=== PATIENT | male | born 1965 | race American Indian/Alaskan Native ===

== ENCOUNTER 2019-07-30 11:41 | Emergency (ER) | payer MEDICAID ==
--- NOTE | 2019-07-30 12:28 | Emergency Department Report ---
ED Altered Mental Status HPI - General Chief Complaint: Altered Mental Status Stated Complaint: LOW BLOOD SUGAR Time Seen by Provider: 07/30/19 12:17 Source: EMS Mode of arrival: Ambulatory Limitations: Altered Mental Status - History of Present Illness Initial Comments: Patient is a 54-year-old [place]ian male who comes to the ER after being found by the police in his car at [facility]. Patient was reported as a missing persons 48 hours ago by his family. His Department present at bedside on arrival to the ER. Per RN EMS reported low blood sugar on their arrival to pt on scene. On exam patient is able to tell me that he lives at [address] [place] [address]. He states that he lives at home with family. He is . He has a son. His name is Noe and he lives in [place]. Patient reports a history of hypertension diabetes. He initially stated he did not have a stroke in the past and states many years ago he did. Later in his ER stay family share that he had a diabetic coma in the past and that when he came out of the coma he was not as "bright" as he used to be Patient states that he is on her medications cannot recall arm from a couple days. Denies drugs or alcohol. Patient states he does have a PCP not recall his name. She denies any pain. He denies any trauma. He denies any abuse or injury barring his 2 days missing. Patient states that he WAS FOLLOWING a friend to [employer] a vehicle. On their return from THE PATIENT WAS PULLED OVER FOR A TRAFFIC VIOLATION BY THE POLICE. By the time the PERSON THAT HE WAS FOLLOWING realized he was no longer behind him and he went back to locate him, he could not. So the friend CONTINUED HOME TOWARDS [facility]. The patient had no phone on him. The patient states that he eventually made it to [facility] and he recognized the [facility] so he pulled in there. The PD found him in his care. He was awake at the time, PD called EMS who brings him to ER. No sign of injury. Complaint: confusion -: Gradual, days(s) Severity: mild Associated Symptoms: denies other symptoms - Related Data Allergies Allergy/AdvReac Type Severity Reaction Status Date / Time No Known Allergies Allergy Verified 07/30/19 12:30 ED Review of Systems ROS: Stated complaint: LOW BLOOD SUGAR Other details as noted in HPI Comment: All other systems reviewed and negative ED Past Medical Hx - Past Medical History Hx Hypertension: Yes Hx Diabetes: Yes - Surgical History Past Surgical History?: No - Family History Family history: no significant - Social History Smoking Status: Never Smoker Substance Use Type: None ED Physical Exam - General Limitations: Altered Mental Status General appearance: alert, in no apparent distress - Head Head exam: Present: atraumatic, normocephalic - Eye Eye exam: Present: normal appearance - ENT ENT exam: Present: mucous membranes moist - Neck Neck exam: Present: normal inspection - Respiratory Respiratory exam: Present: normal lung sounds bilaterally. Absent: respiratory distress - Cardiovascular Cardiovascular Exam: Present: regular rate, normal rhythm. Absent: systolic murmur, diastolic murmur, rubs, gallop - GI/Abdominal GI/Abdominal exam: Present: soft, normal bowel sounds - Rectal Rectal exam: Present: deferred - Extremities Exam Extremities exam: Present: normal inspection - Back Exam Back exam: Present: normal inspection - Neurological Exam Neurological exam: Present: alert, oriented X3 - Psychiatric Psychiatric exam: Present: normal affect, normal mood - Skin Skin exam: Present: warm, dry, intact, normal color. Absent: rash - Assessment Assessment Interval: Baseline - Level of Consciousness 1a. Level of Consciousness: alert/keenly responsive - LOC Questions 1b. LOC Questions: answers both correctly - LOC Command 1c. LOC Commands: performs tasks correctly - Best Gaze 2. Best Gaze: normal - Visual 3. Visual: no visual loss - Facial Palsy 4. Facial Palsy: normal symmetrical movement - Motor Arm 5a. Motor Arm Left: no drift 5b. Motor Arm Right: no drift - Motor Leg 6a. Motor Leg Left: no drift 6b. Motor Leg Right: no drift - Limb Ataxia 7. Limb Ataxia: absent - Sensory 8. Sensory: normal - Best Language 9. Best Language: no aphasia - Dysarthria 10. Dysarthria: normal - Extinction and Inattention 11. Extinction/Inattention: no abnormality - Scoring Total Score: 0 Stroke Severity: No Stroke Symptoms ED Course Vital Signs 07/30/19 07/30/19 07/30/19 11:54 12:34 13:54 Pulse Rate 88 Respiratory 16 14 Rate Blood Pressure 211/117 194/124 [Right] O2 Sat by Pulse 98 Oximetry - Lab Data Result diagrams: 07/30/19 12:31 07/30/19 12:31 Lab Results 07/30/19 07/30/19 07/30/19 Range/Units 12:18 12:22 12:22 WBC (4.5-11.0) K/mm3 RBC (3.65-5.03) M/mm3 Hgb (11.8-15.2) gm/dl Hct (35.5-45.6) % MCV (84-94) fl MCH (28-32) pg MCHC (32-34) % RDW (13.2-15.2) % Plt Count (140-440) K/mm3 Lymph % (Auto) (13.4-35.0) % [place] % (Auto) (0.0-7.3) % Eos % (Auto) (0.0-4.3) % Baso % (Auto) (0.0-1.8) % Lymph # (1.2-5.4) K/mm3 [place] # (0.0-0.8) K/mm3 Eos # (0.0-0.4) K/mm3 Baso # (0.0-0.1) K/mm3 Seg Neutrophils % (40.0-70.0) % Seg Neutrophils # (1.8-7.7) K/mm3 PT (12.2-14.9) Sec. INR (0.87-1.13) APTT (24.2-36.6) Sec. Sodium (137-145) mmol/L Potassium (3.6-5.0) mmol/L Chloride (98-107) mmol/L Carbon Dioxide (22-30) mmol/L Anion Gap mmol/L BUN (9-20) mg/dL Creatinine (0.8-1.5) mg/dL Estimated GFR ml/min BUN/Creatinine Ratio % Glucose (75-100) mg/dL POC Glucose 84 (70-105) Lactic Acid (0.7-2.0) mmol/L Calcium (8.4-10.2) mg/dL Total Bilirubin (0.1-1.2) mg/dL AST (5-40) units/L ALT (7-56) units/L Alkaline Phosphatase (35-129) units/L Total Creatine Kinase (55-170) units/L Troponin T (0.00-0.029) ng/mL Total Protein (6.3-8.2) g/dL Albumin (3.9-5) g/dL Albumin/Globulin Ratio % TSH (0.270-4.200) mlU/mL Urine Color Yellow (Yellow) Urine Turbidity Clear (Clear) Urine pH 7.0 (5.0-7.0) Ur Specific [place] 1.016 (1.003-1.030) Urine Protein 30 mg/dl (Negative) mg/dL Urine Glucose (UA) Neg (Negative) mg/dL Urine Ketones Neg (Negative) mg/dL Urine Blood Neg (Negative) Urine Nitrite Neg (Negative) Urine Bilirubin Neg (Negative) Urine Urobilinogen 4.0 (<2.0) mg/dL Ur Leukocyte Esterase Neg (Negative) Urine WBC (Auto) 2.0 (0.0-6.0) /HPF Urine RBC (Auto) 4.0 (0.0-6.0) /HPF U Epithel Cells (Auto) 2.0 (0-13.0) /HPF Urine Bacteria (Auto) 2+ (Negative) /HPF Urine Mucus Few /HPF Urine Opiates Screen Presumptive negative Urine Methadone Screen Presumptive negative Acetaminophen (10.0-30.0) ug/mL Ur Barbiturates Screen Presumptive negative Ur Phencyclidine Scrn Presumptive negative Ur Amphetamines Screen Presumptive negative U Benzodiazepines Scrn Presumptive negative Urine Cocaine Screen Presumptive negative U Marijuana (THC) Screen Presumptive negative Drugs of Abuse Note Disclamer Plasma/Serum Alcohol (0-0.07) % 07/30/19 07/30/19 07/30/19 Range/Units 12:31 12:31 12:31 WBC 4.6 (4.5-11.0) K/mm3 RBC 4.80 (3.65-5.03) M/mm3 Hgb 14.6 (11.8-15.2) gm/dl Hct 44.3 (35.5-45.6) % MCV 92 (84-94) fl MCH 30 (28-32) pg MCHC 33 (32-34) % RDW 14.3 (13.2-15.2) % Plt Count 194 (140-440) K/mm3 Lymph % (Auto) 50.0 H (13.4-35.0) % [place] % (Auto) 6.4 (0.0-7.3) % Eos % (Auto) 4.5 H (0.0-4.3) % Baso % (Auto) 0.5 (0.0-1.8) % Lymph # 2.3 (1.2-5.4) K/mm3 [place] # 0.3 (0.0-0.8) K/mm3 Eos # 0.2 (0.0-0.4) K/mm3 Baso # 0.0 (0.0-0.1) K/mm3 Seg Neutrophils % 38.6 L (40.0-70.0) % Seg Neutrophils # 1.8 (1.8-7.7) K/mm3 PT 12.7 (12.2-14.9) Sec. INR 0.94 (0.87-1.13) APTT 32.6 (24.2-36.6) Sec. Sodium 144 (137-145) mmol/L Potassium 3.1 L (3.6-5.0) mmol/L Chloride 101.5 (98-107) mmol/L Carbon Dioxide 27 (22-30) mmol/L Anion Gap 19 mmol/L BUN 16 (9-20) mg/dL Creatinine 1.3 (0.8-1.5) mg/dL Estimated GFR > 60 ml/min BUN/Creatinine Ratio 12 % Glucose 121 H (75-100) mg/dL POC Glucose (70-105) Lactic Acid (0.7-2.0) mmol/L Calcium 9.3 (8.4-10.2) mg/dL Total Bilirubin 0.60 (0.1-1.2) mg/dL AST 17 (5-40) units/L ALT 19 (7-56) units/L Alkaline Phosphatase 133 H (35-129) units/L Total Creatine Kinase 157 (55-170) units/L Troponin T < 0.010 (0.00-0.029) ng/mL Total Protein 7.7 (6.3-8.2) g/dL Albumin 4.6 (3.9-5) g/dL Albumin/Globulin Ratio 1.5 % TSH (0.270-4.200) mlU/mL Urine Color (Yellow) Urine Turbidity (Clear) Urine pH (5.0-7.0) Ur Specific [place] (1.003-1.030) Urine Protein (Negative) mg/dL Urine Glucose (UA) (Negative) mg/dL Urine Ketones (Negative) mg/dL Urine Blood (Negative) Urine Nitrite (Negative) Urine Bilirubin (Negative) Urine Urobilinogen (<2.0) mg/dL Ur Leukocyte Esterase (Negative) Urine WBC (Auto) (0.0-6.0) /HPF Urine RBC (Auto) (0.0-6.0) /HPF U Epithel Cells (Auto) (0-13.0) /HPF Urine Bacteria (Auto) (Negative) /HPF Urine Mucus /HPF Urine Opiates Screen Urine Methadone Screen Acetaminophen (10.0-30.0) ug/mL Ur Barbiturates Screen Ur Phencyclidine Scrn Ur Amphetamines Screen U Benzodiazepines Scrn Urine Cocaine Screen U Marijuana (THC) Screen Drugs of Abuse Note Plasma/Serum Alcohol (0-0.07) % 07/30/19 07/30/19 07/30/19 Range/Units 12:31 12:31 12:31 WBC (4.5-11.0) K/mm3 RBC (3.65-5.03) M/mm3 Hgb (11.8-15.2) gm/dl Hct (35.5-45.6) % MCV (84-94) fl MCH (28-32) pg MCHC (32-34) % RDW (13.2-15.2) % Plt Count (140-440) K/mm3 Lymph % (Auto) (13.4-35.0) % [place] % (Auto) (0.0-7.3) % Eos % (Auto) (0.0-4.3) % Baso % (Auto) (0.0-1.8) % Lymph # (1.2-5.4) K/mm3 [place] # (0.0-0.8) K/mm3 Eos # (0.0-0.4) K/mm3 Baso # (0.0-0.1) K/mm3 Seg Neutrophils % (40.0-70.0) % Seg Neutrophils # (1.8-7.7) K/mm3 PT (12.2-14.9) Sec. INR (0.87-1.13) APTT (24.2-36.6) Sec. Sodium (137-145) mmol/L Potassium (3.6-5.0) mmol/L Chloride (98-107) mmol/L Carbon Dioxide (22-30) mmol/L Anion Gap mmol/L BUN (9-20) mg/dL Creatinine (0.8-1.5) mg/dL Estimated GFR ml/min BUN/Creatinine Ratio % Glucose (75-100) mg/dL POC Glucose (70-105) Lactic Acid 0.80 (0.7-2.0) mmol/L Calcium (8.4-10.2) mg/dL Total Bilirubin (0.1-1.2) mg/dL AST (5-40) units/L ALT (7-56) units/L Alkaline Phosphatase (35-129) units/L Total Creatine Kinase (55-170) units/L Troponin T (0.00-0.029) ng/mL Total Protein (6.3-8.2) g/dL Albumin (3.9-5) g/dL Albumin/Globulin Ratio % TSH (0.270-4.200) mlU/mL Urine Color (Yellow) Urine Turbidity (Clear) Urine pH (5.0-7.0) Ur Specific [place] (1.003-1.030) Urine Protein (Negative) mg/dL Urine Glucose (UA) (Negative) mg/dL Urine Ketones (Negative) mg/dL Urine Blood (Negative) Urine Nitrite (Negative) Urine Bilirubin (Negative) Urine Urobilinogen (<2.0) mg/dL Ur Leukocyte Esterase (Negative) Urine WBC (Auto) (0.0-6.0) /HPF Urine RBC (Auto) (0.0-6.0) /HPF U Epithel Cells (Auto) (0-13.0) /HPF Urine Bacteria (Auto) (Negative) /HPF Urine Mucus /HPF Urine Opiates Screen Urine Methadone Screen Acetaminophen < 5.0 L (10.0-30.0) ug/mL Ur Barbiturates Screen Ur Phencyclidine Scrn Ur Amphetamines Screen U Benzodiazepines Scrn Urine Cocaine Screen U Marijuana (THC) Screen Drugs of Abuse Note Plasma/Serum Alcohol < 0.01 (0-0.07) % 07/30/19 07/30/19 Range/Units 12:38 14:18 WBC (4.5-11.0) K/mm3 RBC (3.65-5.03) M/mm3 Hgb (11.8-15.2) gm/dl Hct (35.5-45.6) % MCV (84-94) fl MCH (28-32) pg MCHC (32-34) % RDW (13.2-15.2) % Plt Count (140-440) K/mm3 Lymph % (Auto) (13.4-35.0) % [place] % (Auto) (0.0-7.3) % Eos % (Auto) (0.0-4.3) % Baso % (Auto) (0.0-1.8) % Lymph # (1.2-5.4) K/mm3 [place] # (0.0-0.8) K/mm3 Eos # (0.0-0.4) K/mm3 Baso # (0.0-0.1) K/mm3 Seg Neutrophils % (40.0-70.0) % Seg Neutrophils # (1.8-7.7) K/mm3 PT (12.2-14.9) Sec. INR (0.87-1.13) APTT (24.2-36.6) Sec. Sodium (137-145) mmol/L Potassium (3.6-5.0) mmol/L Chloride (98-107) mmol/L Carbon Dioxide (22-30) mmol/L Anion Gap mmol/L BUN (9-20) mg/dL Creatinine (0.8-1.5) mg/dL Estimated GFR ml/min BUN/Creatinine Ratio % Glucose (75-100) mg/dL POC Glucose (70-105) Lactic Acid (0.7-2.0) mmol/L Calcium (8.4-10.2) mg/dL Total Bilirubin (0.1-1.2) mg/dL AST (5-40) units/L ALT (7-56) units/L Alkaline Phosphatase (35-129) units/L Total Creatine Kinase (55-170) units/L Troponin T (0.00-0.029) ng/mL Total Protein (6.3-8.2) g/dL Albumin (3.9-5) g/dL Albumin/Globulin Ratio % TSH 2.400 (0.270-4.200) mlU/mL Urine Color (Yellow) Urine Turbidity (Clear) Urine pH (5.0-7.0) Ur Specific [place] (1.003-1.030) Urine Protein (Negative) mg/dL Urine Glucose (UA) (Negative) mg/dL Urine Ketones (Negative) mg/dL Urine Blood (Negative) Urine Nitrite (Negative) Urine Bilirubin (Negative) Urine Urobilinogen (<2.0) mg/dL Ur Leukocyte Esterase (Negative) Urine WBC (Auto) (0.0-6.0) /HPF Urine RBC (Auto) (0.0-6.0) /HPF U Epithel Cells (Auto) (0-13.0) /HPF Urine Bacteria (Auto) (Negative) /HPF Urine Mucus /HPF Urine Opiates Screen Urine Methadone Screen Acetaminophen (10.0-30.0) ug/mL Ur Barbiturates Screen Ur Phencyclidine Scrn Ur Amphetamines Screen U Benzodiazepines Scrn Urine Cocaine Screen U Marijuana (THC) Screen Drugs of Abuse Note Plasma/Serum Alcohol < 0.01 (0-0.07) % - EKG Data -: EKG Interpreted by Mo EKG shows normal: sinus rhythm Rate: normal Interpretation: no acute changes - Radiology Data Radiology results: report reviewed, image reviewed - Medical Decision Making Lab Results 07/30/19 07/30/19 07/30/19 Range/Units 12:18 12:22 12:22 WBC (4.5-11.0) K/mm3 RBC (3.65-5.03) M/mm3 Hgb (11.8-15.2) gm/dl Hct (35.5-45.6) % MCV (84-94) fl MCH (28-32) pg MCHC (32-34) % RDW (13.2-15.2) % Plt Count (140-440) K/mm3 Lymph % (Auto) (13.4-35.0) % [place] % (Auto) (0.0-7.3) % Eos % (Auto) (0.0-4.3) % Baso % (Auto) (0.0-1.8) % Lymph # (1.2-5.4) K/mm3 [place] # (0.0-0.8) K/mm3 Eos # (0.0-0.4) K/mm3 Baso # (0.0-0.1) K/mm3 Seg Neutrophils % (40.0-70.0) % Seg Neutrophils # (1.8-7.7) K/mm3 PT (12.2-14.9) Sec. INR (0.87-1.13) APTT (24.2-36.6) Sec. Sodium (137-145) mmol/L Potassium (3.6-5.0) mmol/L Chloride (98-107) mmol/L Carbon Dioxide (22-30) mmol/L Anion Gap mmol/L BUN (9-20) mg/dL Creatinine (0.8-1.5) mg/dL Estimated GFR ml/min BUN/Creatinine Ratio % Glucose (75-100) mg/dL POC Glucose 84 (70-105) Lactic Acid (0.7-2.0) mmol/L Calcium (8.4-10.2) mg/dL Total Bilirubin (0.1-1.2) mg/dL AST (5-40) units/L ALT (7-56) units/L Alkaline Phosphatase (35-129) units/L Total Creatine Kinase (55-170) units/L Troponin T (0.00-0.029) ng/mL Total Protein (6.3-8.2) g/dL Albumin (3.9-5) g/dL Albumin/Globulin Ratio % TSH (0.270-4.200) mlU/mL Urine Color Yellow (Yellow) Urine Turbidity Clear (Clear) Urine pH 7.0 (5.0-7.0) Ur Specific [place] 1.016 (1.003-1.030) Urine Protein 30 mg/dl (Negative) mg/dL Urine Glucose (UA) Neg (Negative) mg/dL Urine Ketones Neg (Negative) mg/dL Urine Blood Neg (Negative) Urine Nitrite Neg (Negative) Urine Bilirubin Neg (Negative) Urine Urobilinogen 4.0 (<2.0) mg/dL Ur Leukocyte Esterase Neg (Negative) Urine WBC (Auto) 2.0 (0.0-6.0) /HPF Urine RBC (Auto) 4.0 (0.0-6.0) /HPF U Epithel Cells (Auto) 2.0 (0-13.0) /HPF Urine Bacteria (Auto) 2+ (Negative) /HPF Urine Mucus Few /HPF Urine Opiates Screen Presumptive negative Urine Methadone Screen Presumptive negative Acetaminophen (10.0-30.0) ug/mL Ur Barbiturates Screen Presumptive negative Ur Phencyclidine Scrn Presumptive negative Ur Amphetamines Screen Presumptive negative U Benzodiazepines Scrn Presumptive negative Urine Cocaine Screen Presumptive negative U Marijuana (THC) Screen Presumptive negative Drugs of Abuse Note Disclamer Plasma/Serum Alcohol (0-0.07) % 07/30/19 07/30/19 07/30/19 Range/Units 12:31 12:31 12:31 WBC 4.6 (4.5-11.0) K/mm3 RBC 4.80 (3.65-5.03) M/mm3 Hgb 14.6 (11.8-15.2) gm/dl Hct 44.3 (35.5-45.6) % MCV 92 (84-94) fl MCH 30 (28-32) pg MCHC 33 (32-34) % RDW 14.3 (13.2-15.2) % Plt Count 194 (140-440) K/mm3 Lymph % (Auto) 50.0 H (13.4-35.0) % [place] % (Auto) 6.4 (0.0-7.3) % Eos % (Auto) 4.5 H (0.0-4.3) % Baso % (Auto) 0.5 (0.0-1.8) % Lymph # 2.3 (1.2-5.4) K/mm3 [place] # 0.3 (0.0-0.8) K/mm3 Eos # 0.2 (0.0-0.4) K/mm3 Baso # 0.0 (0.0-0.1) K/mm3 Seg Neutrophils % 38.6 L (40.0-70.0) % Seg Neutrophils # 1.8 (1.8-7.7) K/mm3 PT 12.7 (12.2-14.9) Sec. INR 0.94 (0.87-1.13) APTT 32.6 (24.2-36.6) Sec. Sodium 144 (137-145) mmol/L Potassium 3.1 L (3.6-5.0) mmol/L Chloride 101.5 (98-107) mmol/L Carbon Dioxide 27 (22-30) mmol/L Anion Gap 19 mmol/L BUN 16 (9-20) mg/dL Creatinine 1.3 (0.8-1.5) mg/dL Estimated GFR > 60 ml/min BUN/Creatinine Ratio 12 % Glucose 121 H (75-100) mg/dL POC Glucose (70-105) Lactic Acid (0.7-2.0) mmol/L Calcium 9.3 (8.4-10.2) mg/dL Total Bilirubin 0.60 (0.1-1.2) mg/dL AST 17 (5-40) units/L ALT 19 (7-56) units/L Alkaline Phosphatase 133 H (35-129) units/L Total Creatine Kinase 157 (55-170) units/L Troponin T < 0.010 (0.00-0.029) ng/mL Total Protein 7.7 (6.3-8.2) g/dL Albumin 4.6 (3.9-5) g/dL Albumin/Globulin Ratio 1.5 % TSH (0.270-4.200) mlU/mL Urine Color (Yellow) Urine Turbidity (Clear) Urine pH (5.0-7.0) Ur Specific [place] (1.003-1.030) Urine Protein (Negative) mg/dL Urine Glucose (UA) (Negative) mg/dL Urine Ketones (Negative) mg/dL Urine Blood (Negative) Urine Nitrite (Negative) Urine Bilirubin (Negative) Urine Urobilinogen (<2.0) mg/dL Ur Leukocyte Esterase (Negative) Urine WBC (Auto) (0.0-6.0) /HPF Urine RBC (Auto) (0.0-6.0) /HPF U Epithel Cells (Auto) (0-13.0) /HPF Urine Bacteria (Auto) (Negative) /HPF Urine Mucus /HPF Urine Opiates Screen Urine Methadone Screen Acetaminophen (10.0-30.0) ug/mL Ur Barbiturates Screen Ur Phencyclidine Scrn Ur Amphetamines Screen U Benzodiazepines Scrn Urine Cocaine Screen U Marijuana (THC) Screen Drugs of Abuse Note Plasma/Serum Alcohol (0-0.07) % 07/30/19 07/30/19 07/30/19 Range/Units 12:31 12:31 12:31 WBC (4.5-11.0) K/mm3 RBC (3.65-5.03) M/mm3 Hgb (11.8-15.2) gm/dl Hct (35.5-45.6) % MCV (84-94) fl MCH (28-32) pg MCHC (32-34) % RDW (13.2-15.2) % Plt Count (140-440) K/mm3 Lymph % (Auto) (13.4-35.0) % [place] % (Auto) (0.0-7.3) % Eos % (Auto) (0.0-4.3) % Baso % (Auto) (0.0-1.8) % Lymph # (1.2-5.4) K/mm3 [place] # (0.0-0.8) K/mm3 Eos # (0.0-0.4) K/mm3 Baso # (0.0-0.1) K/mm3 Seg Neutrophils % (40.0-70.0) % Seg Neutrophils # (1.8-7.7) K/mm3 PT (12.2-14.9) Sec. INR (0.87-1.13) APTT (24.2-36.6) Sec. Sodium (137-145) mmol/L Potassium (3.6-5.0) mmol/L Chloride (98-107) mmol/L Carbon Dioxide (22-30) mmol/L Anion Gap mmol/L BUN (9-20) mg/dL Creatinine (0.8-1.5) mg/dL Estimated GFR ml/min BUN/Creatinine Ratio % Glucose (75-100) mg/dL POC Glucose (70-105) Lactic Acid 0.80 (0.7-2.0) mmol/L Calcium (8.4-10.2) mg/dL Total Bilirubin (0.1-1.2) mg/dL AST (5-40) units/L ALT (7-56) units/L Alkaline Phosphatase (35-129) units/L Total Creatine Kinase (55-170) units/L Troponin T (0.00-0.029) ng/mL Total Protein (6.3-8.2) g/dL Albumin (3.9-5) g/dL Albumin/Globulin Ratio % TSH (0.270-4.200) mlU/mL Urine Color (Yellow) Urine Turbidity (Clear) Urine pH (5.0-7.0) Ur Specific [place] (1.003-1.030) Urine Protein (Negative) mg/dL Urine Glucose (UA) (Negative) mg/dL Urine Ketones (Negative) mg/dL Urine Blood (Negative) Urine Nitrite (Negative) Urine Bilirubin (Negative) Urine Urobilinogen (<2.0) mg/dL Ur Leukocyte Esterase (Negative) Urine WBC (Auto) (0.0-6.0) /HPF Urine RBC (Auto) (0.0-6.0) /HPF U Epithel Cells (Auto) (0-13.0) /HPF Urine Bacteria (Auto) (Negative) /HPF Urine Mucus /HPF Urine Opiates Screen Urine Methadone Screen Acetaminophen < 5.0 L (10.0-30.0) ug/mL Ur Barbiturates Screen Ur Phencyclidine Scrn Ur Amphetamines Screen U Benzodiazepines Scrn Urine Cocaine Screen U Marijuana (THC) Screen Drugs of Abuse Note Plasma/Serum Alcohol < 0.01 (0-0.07) % 07/30/19 07/30/19 Range/Units 12:38 14:18 WBC (4.5-11.0) K/mm3 RBC (3.65-5.03) M/mm3 Hgb (11.8-15.2) gm/dl Hct (35.5-45.6) % MCV (84-94) fl MCH (28-32) pg MCHC (32-34) % RDW (13.2-15.2) % Plt Count (140-440) K/mm3 Lymph % (Auto) (13.4-35.0) % [place] % (Auto) (0.0-7.3) % Eos % (Auto) (0.0-4.3) % Baso % (Auto) (0.0-1.8) % Lymph # (1.2-5.4) K/mm3 [place] # (0.0-0.8) K/mm3 Eos # (0.0-0.4) K/mm3 Baso # (0.0-0.1) K/mm3 Seg Neutrophils % (40.0-70.0) % Seg Neutrophils # (1.8-7.7) K/mm3 PT (12.2-14.9) Sec. INR (0.87-1.13) APTT (24.2-36.6) Sec. Sodium (137-145) mmol/L Potassium (3.6-5.0) mmol/L Chloride (98-107) mmol/L Carbon Dioxide (22-30) mmol/L Anion Gap mmol/L BUN (9-20) mg/dL Creatinine (0.8-1.5) mg/dL Estimated GFR ml/min BUN/Creatinine Ratio % Glucose (75-100) mg/dL POC Glucose (70-105) Lactic Acid (0.7-2.0) mmol/L Calcium (8.4-10.2) mg/dL Total Bilirubin (0.1-1.2) mg/dL AST (5-40) units/L ALT (7-56) units/L Alkaline Phosphatase (35-129) units/L Total Creatine Kinase (55-170) units/L Troponin T (0.00-0.029) ng/mL Total Protein (6.3-8.2) g/dL Albumin (3.9-5) g/dL Albumin/Globulin Ratio % TSH 2.400 (0.270-4.200) mlU/mL Urine Color (Yellow) Urine Turbidity (Clear) Urine pH (5.0-7.0) Ur Specific [place] (1.003-1.030) Urine Protein (Negative) mg/dL Urine Glucose (UA) (Negative) mg/dL Urine Ketones (Negative) mg/dL Urine Blood (Negative) Urine Nitrite (Negative) Urine Bilirubin (Negative) Urine Urobilinogen (<2.0) mg/dL Ur Leukocyte Esterase (Negative) Urine WBC (Auto) (0.0-6.0) /HPF Urine RBC (Auto) (0.0-6.0) /HPF U Epithel Cells (Auto) (0-13.0) /HPF Urine Bacteria (Auto) (Negative) /HPF Urine Mucus /HPF Urine Opiates Screen Urine Methadone Screen Acetaminophen (10.0-30.0) ug/mL Ur Barbiturates Screen Ur Phencyclidine Scrn Ur Amphetamines Screen U Benzodiazepines Scrn Urine Cocaine Screen U Marijuana (THC) Screen Drugs of Abuse Note Plasma/Serum Alcohol < 0.01 (0-0.07) % Vital Signs 07/30/19 07/30/19 07/30/19 11:54 12:34 13:54 Pulse Rate 88 Respiratory 16 14 Rate Blood Pressure 211/117 194/124 [Right] O2 Sat by Pulse 98 Oximetry PD at bedside on arrival labs noted- K replaced ua noted CT neg xray neg no neuro def taking po ambulating family phoned and at bedside. Family interviewed. They informed me that pt has had some difficulties since he had diabetic coma. The story told to me by pt was in fact what family had also been told by friend. Pt is unharmed. labs/ct/xray all normal.. He has ambulated without difficulty. BP per provider on dc 150/88. HR 90. RR 20. Eating [employer] sitting at bedside with family. Pt to dc with family they understand he should be observed and follow up with pcp. He is to resume home meds and diabetic diet. They verbalize understanding. - Differential Diagnosis wellness eval; ro injury/abuse; substance abuse; cva/tia; chi - Core Measures AMI Core Measures Followed: No - NEXUS Criteria Focal neurological deficit present: No Midline spinal tenderness present: No Altered level of consciousness: No Intoxication present: No Distracting injury present: No NEXUS results: C-Spine can be cleared clinically by these results. Imaging is not required. Critical care attestation.: If time is entered above; I have spent that time in minutes in the direct care of this critically ill patient, excluding procedure time. ED Disposition Clinical Impression: AMS (altered mental status), History of chronic hypertension, History of diabetes mellitus, Hypokalemia Disposition: DC-01 TO HOME OR SELFCARE Is pt being admited?: No Does the pt Need Aspirin: No Condition: Stable Additional Instructions: follow up with pcp this week for reevaluation referral below diabetic diet stay well hydrated stay with family activity as tolerated motrin or tylenol for pain Referrals: GUILLERMINA ACEVEDO MD [Primary Care Provider] - 3-5 Days VARINDER ESTRADA MD [Staff Physician] - 3-5 Days Time of Disposition: 16:08
[2019-07-30 12:31] LABS: Bacteria,Urine 2+ /HPF (Negative); Bilirubin,Urine NEG (Negative); Blood,Urine NEG (Negative); Color,Urine Yellow (Yellow); Mucus,Urine FEW /HPF
[2019-07-30 12:39] LABS: Amphetamine Screen,Urine PRESUMPTIVE NEGATIVE; Benzodiazepines Screen,Urine PRESUMPTIVE NEGATIVE; Cannabinoid Screen,Urine PRESUMPTIVE NEGATIVE; Cocaine Screen,Urine PRESUMPTIVE NEGATIVE; Methadone Screen,Urine PRESUMPTIVE NEGATIVE; Opiate Screen,Urine PRESUMPTIVE NEGATIVE
[2019-07-30] MEDS ORDERED: DEXTROSE 5% IN WATER 1,000 ML IV SCH (13:00)
[2019-07-30 13:01] LABS: Basophils % (Auto) 0.5 % (0.0-1.8); Eosinophils # (Auto) 0.2 K/mm3 (0.0-0.4); Eosinophils % (Auto) 4.5 % (0.0-4.3); Hematocrit 44.3 % (35.5-45.6); Hemoglobin 14.6 gm/dl (11.8-15.2); Lymphocytes # (Auto) 2.3 K/mm3 (1.2-5.4); Mean Corpuscular HGB Conc 33 % (32-34); Mean Corpuscular Volume 92 fl (84-94); Monocytes # (Auto) 0.3 K/mm3 (0.0-0.8); Monocytes % (Auto) 6.4 % (0.0-7.3); Platelet Count 194 K/mm3 (140-440); Red Cell Distribution Width 14.3 % (13.2-15.2)
--- NOTE | 2019-07-30 13:03 | XRay Report ---
CHEST 2 VIEWS INDICATION / CLINICAL INFORMATION: ams. COMPARISON: None available. FINDINGS: SUPPORT DEVICES: None. HEART / MEDIASTINUM: No significant abnormality. LUNGS / PLEURA: No significant pulmonary or pleural abnormality. No pneumothorax. ADDITIONAL FINDINGS: No significant additional findings. IMPRESSION: 1. No acute findings. Signer Name: Art Walker MD Signed: 07/30/2019 12:58 PM Workstation Name: [id number]
[2019-07-30 13:14] LABS: INR 0.94 (0.87-1.13)
[2019-07-30 13:15] LABS: Partial Thromboplastin Time 32.6 Sec. (24.2-36.6)
[2019-07-30 13:21] LABS: Alanine Aminotransferase 19 units/L (7-56); Albumin 4.6 g/dL (3.9-5); BUN/Creatinine Ratio 12; Blood Urea Nitrogen 16 mg/dL (9-20); Calcium 9.3 mg/dL (8.4-10.2); Hemolysis Index 4
[2019-07-30 13:57] VITALS: BP 194/124
--- NOTE | 2019-07-30 14:26 | Cat Scan Report ---
CT head without contrast INDICATION : ams. TECHNIQUE: Axial imaging performed from the skull apex through the skull base without the use of con trast. All CT scans at this location are performed using CT dose reduction for ALARA by means of aut omated exposure control. COMPARISON: None FINDINGS: Parenchyma: No suspicious focal hypodensity. Moderate bilateral relatively symmetric chronic white m atter hypodensities. No mass or mass effect. No hemorrhage. Ventricles: Ventricles and sulci are enlarged but appear symmetric. Soft tissues: Soft tissues including the orbits appear normal. Bones: No acute osseous abnormality. Sinuses: Sinuses and mastoid air cells are clear. IMPRESSION: 1. No acute change. 2. Global cortical atrophy. 3. Moderate chronic white matter microangiopathy. Signer Name: Satinder Gonzalez MD Signed: 07/30/2019 2:22 PM Workstation Name: [id number]
== END 2019-07-30 16:20 | disposition home or self-care (01) ==
LOC: ED 11:41
DX: E11.65 Type 2 diabetes mellitus with hyperglycemia (principal); R41.82 Altered mental status, unspecified; I10 Essential (primary) hypertension
CPT/HCPCS: 36415; 70450; 71046; 80053; 80307; 80320; 81001; 82140; 82550; 82962; 84443; 84484; 85025; 85610; 85730; 93005; 93010; G0480

== ENCOUNTER 2021-07-29 16:55 | Emergency (ER) | payer MEDICAID ==
[2021-07-29] MEDS ORDERED: cloNIDine 0.2 MG TAB PO ONE (17:59)
--- NOTE | 2021-07-29 18:01 | Emergency Department Report ---
HPI - General Chief Complaint: High BP Time Seen by Provider: 07/29/21 17:47 - HPI HPI: 56-year-old male presents to the emergency department, sent in by his PCP Dr. Morton, with complaint of elevated and uncontrolled blood pressure. The patient takes hydrochlorothiazide 12.5 mg, losartan 100 mg and hydralazine 50 mg and his blood pressure has been elevated over the past few months. He did not take any medication today. He denies any headache, vision change, slurred speech, chest pain, shortness of breath, edema. Apparently the patient has some history of kidney disease as the PCP told him that he will need to follow-up with a food and beverage outlets manager. ED Past Medical Hx - Past Medical History Hx Hypertension: Yes Hx Diabetes: Yes - Surgical History Past Surgical History?: No - Social History Smoking Status: Never Smoker Substance Use Type: None ED Review of Systems ROS: Stated complaint: HTN Other details as noted in HPI Comment: All other systems reviewed and negative Constitutional: denies: chills, fever Eyes: denies: eye pain, vision change ENT: denies: ear pain, throat pain Respiratory: denies: cough, shortness of breath Cardiovascular: denies: chest pain, palpitations Gastrointestinal: denies: abdominal pain, vomiting Genitourinary: denies: dysuria, discharge Musculoskeletal: denies: back pain, arthralgia Skin: denies: rash, lesions Neurological: denies: headache, weakness Physical Exam - Physical Exam Vital Signs: Vital Signs 07/29/21 17:01 Temperature 98.1 F Pulse Rate 80 Respiratory 18 Rate Blood Pressure 194/119 [Right] O2 Sat by Pulse 98 Oximetry Physical Exam: GENERAL: The patient is well-developed well-nourished. HENT: Normocephalic. Atraumatic. Patient has moist mucous membranes. EYES: Extraocular motions are intact. NECK: Supple. Trachea is midline. CHEST/LUNGS: Clear to auscultation. There is no respiratory distress noted. HEART/CARDIOVASCULAR: Regular. There is no tachycardia. There is no murmur. ABDOMEN: Abdomen is soft, nontender. Patient has normal bowel sounds. SKIN: Skin is warm and dry. NEURO: The patient is awake, alert, and oriented. The patient is cooperative. The patient has no focal neurologic deficits. Normal speech. MUSCULOSKELETAL: There is no tenderness or deformity. There is no limitation range of motion. ED Course Vital Signs 07/29/21 17:01 Temperature 98.1 F Pulse Rate 80 Respiratory 18 Rate Blood Pressure 194/119 [Right] O2 Sat by Pulse 98 Oximetry ED Medical Decision Making - Lab Data Result diagrams: 07/29/21 18:11 07/29/21 18:56 Lab Results 07/29/21 07/29/21 07/29/21 Range/Units 18:11 18:11 18:56 WBC 6.0 (4.5-11.0) K/mm3 RBC 4.62 (3.65-5.03) M/mm3 Hgb 13.8 (11.8-15.2) gm/dl Hct 41.9 (35.5-45.6) % MCV 91 (84-94) fl MCH 30 (28-32) pg MCHC 33 (32-34) % RDW 15.0 (13.2-15.2) % Plt Count 272 (140-440) K/mm3 Lymph % (Auto) 44.5 H (13.4-35.0) % [place] % (Auto) 6.9 (0.0-7.3) % Eos % (Auto) 2.2 (0.0-4.3) % Baso % (Auto) 1.3 (0.0-1.8) % Lymph # (Auto) 2.7 (1.2-5.4) K/mm3 [place] # (Auto) 0.4 (0.0-0.8) K/mm3 Eos # (Auto) 0.1 (0.0-0.4) K/mm3 Baso # (Auto) 0.1 (0.0-0.1) K/mm3 Seg Neutrophils % 45.1 (40.0-70.0) % Seg Neutrophils # 2.7 (1.8-7.7) K/mm3 Sodium Not Reportable 143 Potassium Not Reportable 3.2 L Chloride Not Reportable 103.1 Carbon Dioxide TNR 25 Anion Gap Not Reportable 18 BUN TNR 21 H Creatinine TNR 1.6 H Estimated GFR TNR 55 BUN/Creatinine Ratio TNR 13 Glucose TNR 90 Calcium TNR 9.4 - Medical Decision Making This patient presents to the emergency department, sent in by his PCP, for uncontrolled blood pressure. However the patient had not taken any of his blood pressure medications prior to arrival. He does present with elevated blood pressure with a systolic that reached 200. The patient is asymptomatic without any complaints of headache, chest pain, shortness of breath, lower extremity swelling, or any physical complaints. Patient was given a dose of Catapres and a dose of hydralazine and his blood pressure came down to a much more reasonable level. Labs have been mostly unremarkable except for some very mild renal insufficiency, which is already known to the patient, and hypokalemia with a potassium level of 3.2. He was given a dose of potassium chloride. The patient was reevaluated multiple times over multiple hours and has remained stable throughout his ED course. He will follow up with his primary care physician and has been given outpatient referral for cardiology for assistance with his hypertension. Critical Care Time: No Critical care attestation.: If time is entered above; I have spent that time in minutes in the direct care of this critically ill patient, excluding procedure time. ED Disposition Clinical Impression: Asymptomatic hypertensive urgency, Hypokalemia, Mild renal insufficiency Disposition: 01 HOME / SELF CARE / HOMELESS Is pt being admited?: No Condition: Stable Instructions: Hypokalemia, Potassium Content of Foods, Managing Your Hypertension Additional Instructions: Please follow-up with your primary care physician in the next few days. Take your blood pressure medications as prescribed. Try to stay away from foods that are high in salt and caffeinated products. Keep a blood sugar log. I am giving you a referral for a local oil field pumper, Dr. Mack, to follow-up regarding management of your blood pressure. Return to the emergency department with any worsening of your symptoms, new or concerning symptoms not addressed during this current emergency department visit, or with any acute distress. Referrals: MANUELA MORTON MD [Referring] - 2-3 Days HUANG MACK MD [Staff Physician] - 3-5 Days Time of Disposition: 19:51
[2021-07-29] MEDS ORDERED: hydrALAZINE 20 MG/1 ML INJ IV ONE (18:06)
[2021-07-29 18:32] LABS: Basophils # (Auto) 0.1 K/mm3 (0.0-0.1); Basophils % (Auto) 1.3 % (0.0-1.8); Eosinophils # (Auto) 0.1 K/mm3 (0.0-0.4); Eosinophils % (Auto) 2.2 % (0.0-4.3); Hematocrit 41.9 % (35.5-45.6); Hemoglobin 13.8 gm/dl (11.8-15.2); Lymphocytes # (Auto) 2.7 K/mm3 (1.2-5.4); Lymphocytes % (Auto) 44.5 % (13.4-35.0); Mean Corpuscular HGB Conc 33 % (32-34); Mean Corpuscular Volume 91 fl (84-94); Monocytes # (Auto) 0.4 K/mm3 (0.0-0.8); Monocytes % (Auto) 6.9 % (0.0-7.3); Red Blood Count 4.62 M/mm3 (3.65-5.03)
[2021-07-29 18:52] LABS: BUN/Creatinine Ratio TNR; Blood Urea Nitrogen TNR mg/dL (9-20); Calcium TNR mg/dL (8.4-10.2); Hemolysis Index TNR
[2021-07-29 19:24] LABS: Calcium 9.4 mg/dL (8.4-10.2)
[2021-07-29 19:37] LABS: Platelet Count 272 K/mm3 (140-440)
[2021-07-29] MEDS ORDERED: POTASSIUM CHLORIDE ER 10 MEQ TAB PO ONE (19:47)
[2021-07-29 19:51] VITALS: BP 134/88
== END 2021-07-29 20:39 | disposition home or self-care (01) ==
LOC: ED 16:55
DX: I16.0 Hypertensive urgency (principal); E87.6 Hypokalemia; N18.2 Chronic kidney disease, stage 2 (mild); E11.8 Type 2 diabetes mellitus with unspecified complications
CPT/HCPCS: 36415; 80048; 85025; 96374; 99283; J0360